=== PATIENT | female | born 2000 | race Caucasian/White ===

== ENCOUNTER 2024-01-08 15:13 | Outpatient (CLI) | payer OTHER, SELFPAY ==
--- OUTSIDE RECORDS SUMMARY | 2024-01-10 10:14 | XMS_ITS | Clinical Summary ---
Author Organization [facility] Address [place], [place] [address] Care Team Providers Care Lapidarist Name Role Phone Katie Chavez MD Primary Care Provider [phone] Allergies Active Allergy Reactions Criticality Noted Date Comments Cephalexin Hives Medium 09/23/2021 Cephalosporins Hives 02/07/2023 raspy breathing Medications Medication Sig Dispensed Refills Start Date End Date Status methylphenidate HCl 36 mg Extended-Release tablet 06/18/2014 Active methylphenidate HCl (Concerta) 36 mg Extended-Release tabletIndications:Att ention deficit hyperactivity disorder (ADHD), predominantly inattentive type Take 1 Tablet (36 mg) by mouth once daily. 30 Tablet 07/16/2023 Active FLUoxetine (PROZAC) 40 mg capsuleIndications:GA D (generalized anxiety disorder) Take 1 Capsule (40 mg) by mouth every morning. 100 Capsule 3 06/20/2023 Active methylphenidate HCl (RITALIN) 10 mg tabletIndications:Att ention deficit hyperactivity disorder (ADHD), unspecified ADHD type Take 1 Tablet (10 mg) by mouth once daily. Take one tablet daily PRN for 30 Tablet 06/20/2023 Active Active Problems Problem Noted Date Diagnosed Date ADHD 02/07/2023 ANNA (generalized anxiety disorder) 02/07/2023 Encounters Date Type Department Care Team Description 11/21/2023 12:40 PM CDT Office Visit [facility] [address] [place] [address] Katie Chavez MD Derm Problem (palm of hand, bottom of middle finger, xfeb) 11/21/2023 Travel from Last 3 Months Immunizations Name Administration Dates Next Due COVID-19 Vaccine Spikevax (Selvin corea 50mcg/0.5mL) 12YO+ [id number] Formula PF 06/20/2023 COVID-19 vaccine (Jose-J&J) PF, MDV DTaP 09/23/2007, 4,03/05/2003,01/07,2002 HIB PRP-OMP (PedvaxHIB) 12/07/2003,03/05,01/07/2003,11/03 HPV 9 (Gardasil 9) 06/19/2016,05/06/2015, 015 Hepatitis A (Peds) 05/04/2014,11/28/2011 Hepatitis B (Peds) 09/07/2003,06/05/2003, 003 Influenza, IIV4 04/06/2021 MMR 09/07/2003 MMRV 09/21/2006 Meningococcal Mcv4, Unspecif ied Formulation 02/10/2019,05/04/2014 Pneumococcal conj 7-Valent (Prevnar 7) 3,01/07/2003,2002 Polio Virus, Unspecified 09/23/2007,05/18,01/07/2003,11/03 Tdap 12/08/2020,05/04/2004 Varicella Vaccine 09/07/2003 Family History Medical History Relation Name Comments Cancer-breast Maternal Aunt Relation Name Status Comments Maternal Aunt Alive Social History Tobacco Use Types Packs/Day Years Used Date Smoking Tobacco: Never Passive Smoke Exposure: Never Smokeless Tobacco: Never Tobacco Cessation:Counseling Given: Not Answered Alcohol Use Standard Drinks/Week Comments Yes 0 (1 standard drink = 0.6 oz pure alcohol) x1 month - wine or mixed drinks PHQ-2 Answer Date Recorded PHQ-2 TOTAL SCORE 2 05/17/2023 Social Connections Answer Date Recorded Frequency of Communication with Friends and Fami ly 0 11/21/2023 Financial Resource Strain Answer Date R ecorded Difficulty of Paying Living Expenses 3 11/21/2023 Difficulty of Paying Living Expenses Not on file 11/21/2023 Food Insecurity Answer Date Recorded Worried About Running Out of Food in the Last Ye ar 1 11/21/2023 Transportation Needs Answer Date Record ed Lack of Transportation (Medical) 1 11/21/2023 Housing Stability Answer Date Recorded Unable to Pay for Housing in the Last Year 1 11/21/2023 Sex and Gender Information Value Date Recorded Sex Assigned at Not on file Gender Identity Not on file Sexual Orientation Not on file Obstetrics History Last Filed Vital Signs Vital Sign Reading Time Taken Comments Blood Pressure 106/64 11/21/2023 12:36 PM CDT Pulse 73 11/21/2023 12:36 PM CDT Temperature - - Respiratory Rate - - Oxygen Saturation 99% 11/21/2023 12: 36 PM CDT Inhaled Oxygen Concentration - - Weight 65.7 kg (144 lb 12.8 oz) 024 12:36 PM CDT Height 168 cm (5' 6.14) 02/07/2023 4:25 PM CDT Body Mass Index - - Plan of Treatment Upcoming Encounters Date Type Department Care Team (Late st Contact Info) Description 01/14/2024 9:00 AM CDT Office Visit [facility] [address] [place] [address] Samira Rodriguez MD [address] [place] [address] Health Maintenance Due Date Last Done Comments HIV for age 15-65 2017 Chlamydia for age 16-24 2018 Hepatitis C screening for ag e 18-79 2020 Pap test for age 21-65 09/04/2023 BMI (ht and wt on same day) for age 18+ 02/08/2024 02/07/2023 Influenza for age 9-49 02/17/2024 04/06/2021 Depression screening for age 12+ 05/17/2024 05/17/2023, 02/07/2023 Tetanus booster 12/08/2030 12/08/2020, 05/04/2004 Pneumococcal series for age 6-64 Aged Out 03/05/2003, 01/07/2003, 2002 No longer eligible based on patient's age to complete this topic HPV series for age 9-26 Completed 06/19/19 17, 05/06/2015, 10/05/2014 Meningococcal series for age 11-21 Completed 02/10/2019, 05/04/2014 Tdap Completed 12/08/2020, 05/04/2004 COVID-19 vaccine series Completed 06/20/19, 06/05/2021, 09/16/2020 Care Teams Lapidarist Relationship Specialty Start Date End Date Katie Chavez MD [address] [place] [address] PCP - General Family Practice 06/20/23
== END 2024-01-08 15:14 | disposition home or self-care (01) ==
LOC: NFLDREF 01-10 10:12
PROVIDERS: PCP Family Medicine; Referring Provider Family Medicine; Visit Provider Nurse Practitioner Family
DX: R30.0 Dysuria (principal); N94.89 Other specified conditions associated with female genital organs and menstrual cycle; N30.00 Acute cystitis without hematuria; N30.01 Acute cystitis with hematuria
CPT/HCPCS: 87086; 87186